=== PATIENT | male | born 1985 | race Caucasian/White ===

== ENCOUNTER 2021-10-24 17:42 | Emergency (ER) | payer MEDICAID, SELFPAY ==
--- NOTE | ~2021-10-24 | US_ITS ---
EXAMINATION: US ABDOMEN LIMITED CLINICAL INFORMATION: Right upper quadrant pain. Elevated LFTs.. COMPARISON: None TECHNIQUE: Real-time imaging of the right upper quadrant abdominal viscera. FINDINGS: PANCREAS: Obscured by interposed bowel gas. LIVER: Normal. The liver is normal in size. The liver contour is normal. There is diffuse increased liver parenchymal echogenicity, consistent with hepatic steatosis. No focal hepatic lesion. There is no intrahepatic biliary duct dilatation seen. GALLBLADDER: Normal. The gallbladder is physiologically distended without evidence of stones, sludge, polyps, wall thickening or pericholecystic fluid. COMMON BILE DUCT: Normal in caliber measuring 0.3 cm in diameter. RIGHT KIDNEY: Normal. No hydronephrosis. No renal calculi or focal parenchymal lesions. The kidney measures 12.2 cm in maximum dimension. FREE FLUID: None. US/US abdomen limited IMPRESSION: Hepatic steatosis. No acute findings.
--- NOTE | ~2021-10-24 | XR_ITS ---
EXAMINATION: XR CHEST CLINICAL INFORMATION: Chest pain. COMPARISON: None. TECHNIQUE: 2 views of the chest were obtained. FINDINGS: Left-sided pacer with leads projecting over the right atrium and right ventricle. Normal appearance of the cardiomediastinal silhouette. The patient is slightly rotated to the right which likely accounts for the slight asymmetric fullness at the right hilum. No discrete focal airspace opacities, pleural effusions or pneumothorax. No acute osseous abnormalities. The visualized upper abdomen is within normal limits. XR/XR chest 2V IMPRESSION: No acute cardiopulmonary findings.
--- NOTE | 2021-10-24 18:02 | ED.GENADULT ---
HPI - General Adult General Chief complaint: Chest Pain <DEVENDRA Winter Last Filed: 10/24/21 21:08> Stated complaint: REPRODUCABLE CHEST PAIN PER EMS <DEVENDRA Winter Last Filed: 10/24/21 21:08> Time Seen by Provider: 10/24/21 18:02 <DEVENDRA Winter Last Filed: 10/24/21 21:08> Source: patient and EMS <DEVENDRA Winter Last Filed: 10/24/21 21:08> Mode of arrival: EMS <DEVENDRA Winter Last Filed: 10/24/21 21:08> Limitations: no limitations <DEVENDRA Winter Last Filed: 10/24/21 21:08> History of Present Illness HPI narrative: Patient is a 36 year old male presenting to the emergency department today with chest pain and alcohol detox. Patient states that he is currently at a rehab facility and they are not giving him medication to help with his detox. Patient states that he has a significant heart history including 2 open heart surgeries and a pace maker. Patient states that he takes metoprolol daily. Patient denies any dizziness, lightheadedness, abdominal pain, nausea, vomiting, fever, chills, blurry vision, double vision, loss of vision, difficulty breathing, shortness of breath, back pain, night sweats, pain with urination, increased urinary frequency, increased urinary urgency, blood in his urine or stool, syncope or a near syncopal episode, recent trauma or falls, bowel incontinence, bladder incontinence, bowel retention, bladder retention, or any other complaints at this time. <DEVENDRA Winter Last Filed: 10/24/21 21:08> Onset (ago): hour(s) <DEVENDRA Winter - Last Filed: 10/24/21 21:08> Location: chest <DEVENDRA Winter Last Filed: 10/24/21 21:08> Radiation: non-radiation <DEVENDRA Winter Last Filed: 10/24/21 21:08> Severity: mild <DEVENDRA Winter Last Filed: 10/24/21 21:08> Severity scale (1-10): 3 <DEVENDRA Winter Last Filed: 10/24/21 21:08> Quality: dull <DEVENDRA Winter - Last Filed: 10/24/21 21:08> Pain Consistency: constant <DEVENDRA Winter - Last Filed: 10/24/21 21:08> Relieving factors: none <DEVENDRA Winter - Last Filed: 10/24/21 21:08> Exacerbating factors: none <DEVENDRA Winter - Last Filed: 10/24/21 21:08> Associated symptoms: denies other symptoms <DEVENDRA Winter - Last Filed: 10/24/21 21:08> Treatments prior to arrival: none <DEVENDRA Winter - Last Filed: 10/24/21 21:08> Related Data Allergies/adverse reactions: Allergies Allergy/AdvReac Type Severity Reaction Status Date / Time oxycodone Allergy Mild Unknown Verified 10/24/21 18:10 <DEVENDRA Winter - Last Filed: 10/24/21 21:08> Review of Systems Constitutional: Constitutional: Reports no additional constitutional complaints, Denies chills, Denies fever(s) and Denies night sweats <DEVENDRA Winter - Last Filed: 10/24/21 21:08> Eyes: Eyes: Reports no additional eye complaints, Denies blurry vision, Denies change in vision, Denies diplopia, Denies eye discharge, Denies loss of vision and Denies eye pain <DEVENDRA Winter - Last Filed: 10/24/21 21:08> ENT: Denies dizziness <DEVENDRA Winter - Last Filed: 10/24/21 21:08> Cardiovascular: Cardiovascular: Reports no additional cardiovascular complaints, Reports chest pain, Denies lightheadedness, Denies Loss of Consciousness and Denies dyspnea <DEVENDRA Winter - Last Filed: 10/24/21 21:08> Respiratory: Respiratory: Reports no additional respiratory complaints and Denies dyspnea <DEVENDRA Winter - Last Filed: 10/24/21 21:08> Gastrointestinal: Gastrointestinal: Reports no additional gastrointestinal complaints, Denies abdominal pain, Denies melena, Denies hematochezia, Denies change in bowel habits and Denies change in stool character <DEVENDRA Winter - Last Filed: 10/24/21 21:08> Genitourinary: Genitourinary: Reports no additional male genitourinary complaints, Denies hematuria, Denies oliguria, Denies difficulty urinating, Denies dysuria, Denies urinary frequency, Denies urinary hesitancy, Denies urinary incontinence and Denies urinary urgency <DEVENDRA Winter - Last Filed: 10/24/21 21:08> Musculoskeletal: Musculoskeletal: Reports no additional musculoskeletal complaints, Denies numbness and Denies tingling <DEVENDRA Winter - Last Filed: 10/24/21 21:08> Neurologic: Denies dizziness, Denies loss of vision, Denies numbness and Denies tingling <DEVENDRA Winter - Last Filed: 10/24/21 21:08> Psychiatric: Psychiatric: Reports no additional psychiatric complaints <DEVENDRA Winter - Last Filed: 10/24/21 21:08> Endocrine: Endocrine: Reports no additional endocrine complaints <DEVENDRA Winter - Last Filed: 10/24/21 21:08> Hematologic/Lymphatic: Hematologic/Lymphatic: Reports no additional hematologic/lymphatic complaints <DEVENDRA Winter - Last Filed: 10/24/21 21:08> Allergic/Immunologic: Allergic/Immunologic: Reports no additional allergic/immunologic complaints <DEVENDRA Winter - Last Filed: 10/24/21 21:08> [facility] Past Medical History Attestation statement: The following information was validated with the patient. <DEVENDRA Winter - Last Filed: 10/24/21 21:08> Source: old records reviewed <DEVENDRA Winter - Last Filed: 10/24/21 21:08> Medical History: Medical History Alcohol abuse Congenital heart defect <DEVENDRA Winter - Last Filed: 10/24/21 21:08> Social History Social History: Social History Alcohol intake: current Alcohol intake frequency: 3 or more drinks per day Alcohol type: hard liquor Patient Tobacco Use Status: Never used Tobacco Use of substances other than those prescribed or required for medical reasons: Yes Substance Use Type: Marijuana Substance Use Frequency: Daily Advance Directives: No Advance Directives Information Provided: No <DEVENDRA Winter - Last Filed: 10/24/21 21:08> Physical Exam ED Vital Signs: Vital Signs - 24 hr 10/24/21 18:11 10/24/21 18:48 10/24/21 19:30 Temperature 98.6 F Pulse Rate 103 H 94 Respiratory Rate 15 18 Blood Pressure 125/81 125/81 Pulse Oximetry 96 95 89 L 10/24/21 19:35 10/24/21 19:55 10/24/21 21:30 Temperature Pulse Rate 94 103 H Respiratory Rate 20 15 Blood Pressure 125/78 126/81 Pulse Oximetry 95 99 97 BMI result Body Mass Index 25.1 <DEVENDRA Winter - Last Filed: 10/24/21 21:08> Const General: cooperative, no acute distress, alert and awake <DEVENDRA Winter - Last Filed: 10/24/21 21:08> Nutritional Appearance: well nourished <DEVENDRA Winter - Last Filed: 10/24/21 21:08> Orientation/consciousness: patient oriented x3 <DEVENDRA Winter - Last Filed: 10/24/21 21:08> Limitations: no limitations <DEVENDRA Winter - Last Filed: 10/24/21 21:08> HENMT Head: Yes normal to inspection and Yes atraumatic <DEVENDRA Winter - Last Filed: 10/24/21 21:08> Ears: hearing grossly normal bilaterally and external ears normal <DEVENDRA Winter - Last Filed: 10/24/21 21:08> General nose exam: Normal external nose present, no nasal discharge noted and no epistaxis <DEVENDRA Winter - Last Filed: 10/24/21 21:08> Face and sinus: Yes normal facial exam, No abrasion and No laceration <DEVENDRA Winter - Last Filed: 10/24/21 21:08> Mouth: Normal oral and palatal mucosa present, no drooling and no muffled voice <DEVENDRA Winter - Last Filed: 10/24/21 21:08> Eyes General: appearance normal, both eyes and all related structures <DEVENDRA Winter - Last Filed: 10/24/21 21:08> Periorbital: periorbital findings normal <Shelby Wall PA - Last Filed: 10/24/21 21:08> Eyelids: Yes eyelids normal <Shelby Wall PA - Last Filed: 10/24/21 21:08> Conjunctivae: conjunctivae normal <Shelby Wall PA - Last Filed: 10/24/21 21:08> Pupils: Equal, round and reactive pupils present <Shelby Wall PA - Last Filed: 10/24/21 21:08> EOM: EOMs intact bilaterally <Shelby Wall, PA - Last Filed: 10/24/21 21:08> Neck Neck: Yes normal visual inspection, Yes full ROM and Yes no lymphadenopathy <Shelby Wall PA - Last Filed: 10/24/21 21:08> Chest Chest palpation & inspection: normal inspection of the chest <Shelby Wall PA - Last Filed: 10/24/21 21:08> Resp Effort & Inspection: normal respiratory effort and able to speak in complete sentences <Shelby Wall PA - Last Filed: 10/24/21 21:08> Auscultation: clear to auscultation bilaterally <Shelby Wall PA - Last Filed: 10/24/21 21:08> Cardio Rate: regular rate <Shelby Wall PA - Last Filed: 10/24/21 21:08> Rhythm: other (paced) <Shelby Wall PA - Last Filed: 10/24/21 21:08> GI Inspection: Yes normal to inspection <Shelby Wall PA - Last Filed: 10/24/21 21:08> Neuro General: patient oriented x3 and moves all extremities <Shelby Wall PA - Last Filed: 10/24/21 21:08> Cranial nerves: Yes Equal, round and reactive pupils present <Shelby Zamorapinky PA - Last Filed: 10/24/21 21:08> Cognition (Neuro): normal cognition <Shelby Wall PA - Last Filed: 10/24/21 21:08> Motor exam (neuro): 5/5 motor strength present throughout <Shelby Zamorapinky PA - Last Filed: 10/24/21 21:08> Sensory Exam: Normal double simultaneous stimulation for sensation <DEVENDRA Winter - Last Filed: 10/24/21 21:08> Coordination: [id number] test normal <DEVENDRA Winter - Last Filed: 10/24/21 21:08> Extrem General: Yes normal to inspection, Yes full ROM and Yes capillary refill normal <DEVENDRA Winter - Last Filed: 10/24/21 21:08> Psych Appearance: grossly normal <DEVENDRA Winter - Last Filed: 10/24/21 21:08> Mental Status: mental status grossly normal <DEVENDRA Winter - Last Filed: 10/24/21 21:08> Affect: normal affect <DEVENDRA Winter - Last Filed: 10/24/21 21:08> Attitude: cooperative <DEVENDRA Winter - Last Filed: 10/24/21 21:08> Thought process: Normal thought process present <DEVENDRA Winter - Last Filed: 10/24/21 21:08> Thought content: Normal thought content present <DEVENDRA Winter - Last Filed: 10/24/21 21:08> Insight: Good insight present (Psych) <DEVENDRA Winter - Last Filed: 10/24/21 21:08> Medical Decision Making MDM Narrative Medical decision making narrative: Patient is a 36 year old male presenting to the emergency department today with chest pain and alcohol detox. Patient's physical exam was unremarkable. Patient's blood work showed elevated LFTs. Patient's chest x-ray showed no acute process. I explained my physical exam findings as well as all test results to the patient. I answered all questions asked by the patient. Patient received Ativan which he stated helped his symptoms significantly. Patient's RUQ ultrasound is pending. Patient disposition pending imaging results. Patient signed out to NIRANJAN Gresham. <DEVENDRA Winter - Last Filed: 10/24/21 21:08> Differential Diagnosis Differential Diagnosis: alcohol withdrawal <DEVENDRA Winter - Last Filed: 10/24/21 21:08> Medical Records Medical records reviewed: Yes I reviewed the patient's medical records. <DEVENDRA Winter Last Filed: 10/24/21 21:08> Lab Data Lab results reviewed: Yes I reviewed the patient's lab results. <DEVENDRA Winter - Last Filed: 10/24/21 21:08> Result diagrams: : 10/24/21 18:58 10/24/21 18:58 <DEVENDRA Winter - Last Filed: 10/24/21 21:08> Labs: Lab Results 10/24/21 10/24/21 10/24/21 Range/Units 18:58 18:58 18:58 WBC 2.5 L (4.8-10.8) X10*3/uL RBC 4.00 L (4.60-5.80) X10*6/uL Hgb 14.1 (14.0-18.0) g/dl Hct 39.9 L (42.0-52.0) % MCV 99.8 H (80.0-98.0) fL MCH 35.3 H (27.0-33.0) pg MCHC 35.3 (31.0-36.0) g/dl RDW 12.4 (11.0-16.0) % Plt Count 104 L (160-400) X10*3/uL MPV 10.3 (9.4-12.4) fL Immature Gran % (Auto) 0.0 (0.0-0.4) % Neut % (Auto) 50.7 (45-73) % Lymph % (Auto) 28.7 (20-40) % Mills % (Auto) 14.6 H (2-11) % Eos % (Auto) 3.2 (0-4) % Baso % (Auto) 2.8 H (0-2) % Lymph # (Auto) 0.7 L (1.2-4.9) X10*3/uL Mills # (Auto) 0.4 (0.1-1.2) X10*3/uL Eos # (Auto) 0.1 (0.0-0.4) X10*3/uL Baso # (Auto) 0.1 (0.0-0.2) X10*3/uL Abs Immat Gran (auto) 0.00 (0.00-0.03) X10*3/uL Absolute Neuts (auto) 1.3 L (2.0-8.3) x10*3/uL Absolute Nucleated RBC 0.000 (0.0-0.012) X10*3/uL Nucleated RBC % (auto) 0.0 (0.0-0.2) /100WBC Smear Tech's Comments VERIFIED Sodium 139 (135-145) mmol/L Potassium 3.9 (3.3-5.1) mmol/L Chloride 97 (96-108) mmol/L Carbon Dioxide 26 (22-29) mmol/L Anion Gap 20 (12-20) BUN 10 (9-16) mg/dL Creatinine 0.81 (0.5-1.4) mg/dL Estim Creat Clear Calc 127.2 Estimated GFR > 60 Random Glucose 104 (60-115) mg/dL Calcium 9.5 (8.4-10.2) mg/dL Magnesium 1.7 (1.6-2.6) mg/dL Total Bilirubin 2.1 H (0.0-1.0) mg/dL AST 301 H (5-37) U/L ALT 139 H (0-40) U/L Alkaline Phosphatase 99 (39-117) U/L Troponin I High Sens 5.6 (<3.5-35.0) ng/L B-Natriuretic Peptide 57 (<100) pg/mL Total Protein 7.3 (6.5-8.0) g/dL Albumin 4.4 (3.5-5.0) g/dL COVID-19 ([facility]) (Negative) COVID-19 Clin Com 10/24/21 10/24/21 Range/Units 19:59 21:59 WBC (4.8-10.8) X10*3/uL RBC (4.60-5.80) X10*6/uL Hgb (14.0-18.0) g/dl Hct (42.0-52.0) % MCV (80.0-98.0) fL MCH (27.0-33.0) pg MCHC (31.0-36.0) g/dl RDW (11.0-16.0) % Plt Count (160-400) X10*3/uL MPV (9.4-12.4) fL Immature Gran % (Auto) (0.0-0.4) % Neut % (Auto) (45-73) % Lymph % (Auto) (20-40) % Mills % (Auto) (2-11) % Eos % (Auto) (0-4) % Baso % (Auto) (0-2) % Lymph # (Auto) (1.2-4.9) X10*3/uL Mills # (Auto) (0.1-1.2) X10*3/uL Eos # (Auto) (0.0-0.4) X10*3/uL Baso # (Auto) (0.0-0.2) X10*3/uL Abs Immat Gran (auto) (0.00-0.03) X10*3/uL Absolute Neuts (auto) (2.0-8.3) x10*3/uL Absolute Nucleated RBC (0.0-0.012) X10*3/uL Nucleated RBC % (auto) (0.0-0.2) /100WBC Smear Tech's Comments Sodium (135-145) mmol/L Potassium (3.3-5.1) mmol/L Chloride (96-108) mmol/L Carbon Dioxide (22-29) mmol/L Anion Gap (12-20) BUN (9-16) mg/dL Creatinine (0.5-1.4) mg/dL Estim Creat Clear Calc Estimated GFR Random Glucose (60-115) mg/dL Calcium (8.4-10.2) mg/dL Magnesium (1.6-2.6) mg/dL Total Bilirubin (0.0-1.0) mg/dL AST (5-37) U/L ALT (0-40) U/L Alkaline Phosphatase (39-117) U/L Troponin I High Sens 6.2 (<3.5-35.0) ng/L B-Natriuretic Peptide (<100) pg/mL Total Protein (6.5-8.0) g/dL Albumin (3.5-5.0) g/dL COVID-19 ([facility]) Negative (Negative) COVID-19 Clin Com See Note <DEVENDRA Winter - Last Filed: 10/24/21 21:08> Imaging Data Chest x-ray: Attestation: I personally reviewed and interpreted this imaging study as follows: <DEVENDRA iWnter - Last Filed: 10/24/21 21:08> My impression: No acute process. <DEVENDRA Winter - Last Filed: 10/24/21 21:08> Radiologist's impression: EXAMINATION: XR CHEST CLINICAL INFORMATION: Chest pain. COMPARISON: None. TECHNIQUE: 2 views of the chest were obtained. FINDINGS: Left-sided pacer with leads projecting over the right atrium and right ventricle. Normal appearance of the cardiomediastinal silhouette. The patient is slightly rotated to the right which likely accounts for the slight asymmetric fullness at the right hilum. No discrete focal airspace opacities, pleural effusions or pneumothorax. No acute osseous abnormalities. The visualized upper abdomen is within normal limits. XR/XR chest 2V IMPRESSION: No acute cardiopulmonary findings. Dictated By: Susy Miner Signed By: Electronically signed by Susy? Isidra 10/24/21 1841 <DEVENDRA Winter - Last Filed: 10/24/21 21:08> Discharge Plan Discharge Clinical Impression: Chest pain <DEVENDRA Winter - Last Filed: 10/24/21 21:08> Patient Disposition: Still a Patient <DEVENDRA Winter - Last Filed: 10/24/21 21:08> Print Language: Armenian <DEVENDRA Winter - Last Filed: 10/24/21 21:08>
[2021-10-24 18:11] VITALS: BP 125/81; BP 132/95; PULSE 103; PULSE 114; RESP 15; TEMP 37; O2SAT 96; O2SAT 97; BMI 25.1
[2021-10-24] MEDS: LORazepam 1 MG TABLET 2 MG PO (18:32)
[2021-10-24 18:48] VITALS: BP 125/81; PULSE 94; PULSE 98; RESP 18; O2SAT 95
--- NOTE | 2021-10-24 18:49 | PC.NURSE ---
pt a&ox3, vss, pvc monitor applied - AV paced. c/o chest pain (11/10) since 1499, pt checked in to [facility] for ETO[facility] detox today, requesting anxiety medication but wasn't given at facility. hx congenital heart defect, sx, monitored by glass maker at [facility]. medicated per provider order, pt to xray.
[2021-10-24 19:05] LABS: Basophils Absolute Auto 0.1 X10*3/uL (0.0-0.2); Basophils Percent Auto 2.8 % (0-2); Eosinophils Absolute Auto 0.1 X10*3/uL (0.0-0.4); Eosinophils Percent Auto 3.2 % (0-4); Hematocrit 39.9 % (42.0-52.0); Hemoglobin 14.1 g/dl (14.0-18.0); Lymphocytes Absolute Auto 0.7 X10*3/uL (1.2-4.9); Lymphocytes Percent Auto 28.7 % (20-40); MANUAL DIFF FLAG SCAN; Mean Corpuscular HGB Conc 35.3 g/dl (31.0-36.0); Mean Corpuscular Hemoglobin 35.3 pg (27.0-33.0); Mean Corpuscular Volume 99.8 fL (80.0-98.0); Mean Platelet Volume 10.3 fL (9.4-12.4); Monocytes Absolute Auto 0.4 X10*3/uL (0.1-1.2); Monocytes Percent Auto 14.6 % (2-11); Neutrophils Absolute Auto 1.3 x10*3/uL (2.0-8.3); Neutrophils Percent Auto 50.7 % (45-73); Platelet Count 104 X10*3/uL (160-400); Red Cell Distribution Width 12.4 % (11.0-16.0); SCAN SMEAR FLAG 1
[2021-10-24 19:18] LABS: White Blood Count 2.5 X10*3/uL (4.8-10.8)
[2021-10-24 19:26] LABS: SLIDE REVIEW VERIFIED
[2021-10-24 19:30] VITALS: O2SAT 89
--- NOTE | 2021-10-24 19:30 | PC.NURSE ---
this nurse was called into patients room by nataly, pt was sleeping, his O2 sat had dropped to 89% with a good pleth. pt was woken up, pt was coached to take a few deep breaths, pts O2 sat increased to mid 90s.
[2021-10-24 19:32] LABS: B Type Natriuretic Peptide 57 pg/mL (<100); Troponin-I High Sensitivity 5.6 ng/L (<3.5-35.0)
[2021-10-24 19:35] VITALS: O2SAT 95
[2021-10-24 19:36] LABS: Alanine Aminotransferase 139 U/L (0-40); Albumin Level 4.4 g/dL (3.5-5.0); Alkaline Phosphatase 99 U/L (39-117); Anion Gap 20 (12-20); Aspartate Amino Transferase 301 U/L (5-37); Bilirubin Total 2.1 mg/dL (0.0-1.0); Blood Urea Nitrogen 10 mg/dL (9-16); Calcium 9.5 mg/dL (8.4-10.2); Carbon Dioxide 26 mmol/L (22-29); Chloride 97 mmol/L (96-108); Creatinine Clr Calc Pharmacy 127.2; Estimated Glomerular Filt Rate > 60; Glucose Random 104 mg/dL (60-115); Magnesium 1.7 mg/dL (1.6-2.6); Potassium 3.9 mmol/L (3.3-5.1); Sodium 139 mmol/L (135-145); Total Protein 7.3 g/dL (6.5-8.0)
[2021-10-24 19:55] VITALS: BP 125/78; PULSE 94; RESP 20; O2SAT 99
--- NOTE | 2021-10-24 19:59 | PC.NURSE ---
pt a&ox3, resting quietly, COVID swab obtained. no new orders at this time.
[2021-10-24 20:36] LABS: COVID-19 Test Negative (Negative); IDNOW Serial# 55D5AD1C
--- NOTE | 2021-10-24 21:07 | ECG_ITS ---
Test Reason : chest pain Blood Pressure : / mmHG Vent. Rate : 095 BPM Atrial Rate : 095 BPM P-R Int : 130 ms QRS Dur : 156 ms QT Int : 416 ms P-R-T Axes : 007 129 039 degrees QTc Int : 522 ms Atrial-sensed ventricular-paced rhythm Abnormal ECG No previous ECGs available Referred By: Shelby Wall Electronically Signed By:MINERVA ZARATE MD
[2021-10-24 21:30] VITALS: BP 126/81; PULSE 103; RESP 15; O2SAT 97
--- NOTE | 2021-10-24 22:17 | PC.NURSE ---
repeat labs drawn
[2021-10-24 22:33] LABS: Troponin-I High Sensitivity 6.2 ng/L (<3.5-35.0)
[2021-10-26 04:20] LABS: ~Hepatitis C Antibody Nonreactive (Nonreactive)
[2021-10-26 04:40] LABS: HBS Num1 21.94 mIU/mL (0-7.99); HBc Num1 4.08 S/CO (0.00-0.79); HBsAGNum1 0.27 S/CO (0.00-0.99); Hepatitis B Surface Antigen Negative (Negative); ~Hepatitis B Surface Antibody REACTIVE (Nonreactive)
[2021-10-26 05:29] LABS: HBc Num2 4.19 S/CO; Hepatitis B Core Antibody Reactive (Nonreactive)
[2021-10-28 04:01] LABS: Hepatitis A Antibody IgM 0.22 Index (0-0.79); ~Hepatitis A Antibody IgM Nonreactive (Nonreactive)
== END 2021-10-24 23:20 | disposition home or self-care (01) ==
PROVIDERS: Physician Assistant Medical; Emergency Provider Emergency Medicine Emergency Medical Services; PCP Hospitalist
DX: R07.89 Other chest pain (principal); R10.11 Right upper quadrant pain; R79.89 Other specified abnormal findings of blood chemistry; Z20.822 Contact with and (suspected) exposure to COVID-19; Z79.899 Other long term (current) drug therapy
CPT/HCPCS: 36415; 71046; 76705; 80053; 83735; 83880; 84484; 85025; 86704; 86706; 86709; 86803; 87340; 87635; 93005; 99284; 99285